=== PATIENT | male | born 1990 | race American Indian/Alaskan Native ===

== ENCOUNTER 2021-08-10 11:16 | Emergency (ER) | payer OTHER ==
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
[2021-08-10 13:28] VITALS: BP 103/55
== END 2021-08-10 13:43 | disposition home or self-care (01) ==
LOC: ED 11:16
DX: S39.012A Strain of muscle, fascia and tendon of lower back, initial encounter (principal); S16.1XXA Strain of muscle, fascia and tendon at neck level, initial encounter; S39.011A Strain of muscle, fascia and tendon of abdomen, initial encounter; V49.49XA Driver injured in collision with other motor vehicles in traffic accident, initial encounter; Y93.89 Activity, other specified; Y92.89 Other specified places as the place of occurrence of the external cause; Y99.8 Other external cause status
CPT/HCPCS: 99282

== ENCOUNTER 2022-01-28 17:49 | Emergency (ER) | payer SELFPAY ==
[2022-01-28] MEDS ORDERED: METOCLOPRAMIDE 10 MG TAB PO ONE (19:07)
[2022-01-28] MEDS ORDERED: diphenhydrAMINE 25 MG CAP PO ONE (19:07)
[2022-01-28] MEDS ORDERED: DEXAMETHASONE 4 MG TAB PO ONE (19:07)
[2022-01-28] MEDS ORDERED: KETOROLAC 10 MG TAB PO ONE (19:07)
[2022-01-28] MEDS ORDERED: BUTALB/ACETAMINOPHEN/CAFFEINE TAB PO ONE (19:07)
--- NOTE | 2022-01-28 21:00 | Emergency Department Report ---
ED Headache HPI - General Chief Complaint: Headache Stated Complaint: HEADACHE X3 DAYS Time Seen by Provider: 01/28/22 18:32 - History of Present Illness Initial Comments: 31-year-old black male with no past medical history presents to the emergency department for evaluation of 3-day history of persistent headache. He states headache has not been relieved with ibuprofen or Excedrin. He states that he has had intermittent nausea, vomiting, dizziness, photophobia, and vision changes. He states that headache is 10 on a 10 point scale. He states that he gets headaches and this headache is typical of the type of headache he gets but but it is usually not this bad. Timing/Duration: other (3 days) Quality: severe Head Injury Location: frontal Recent Head Trauma: no recent headache/trauma Associated Symptoms: facial pain, nausea/vomiting, vision changes. denies: confusion, fatigue, fever/chills, flushing, loss of consciousness, nasal congestion, nasal drainage, numbness in legs/feet, rash, seizures, sinus infection, stiff neck, weakness Allergies/Adverse Reactions: Allergies No Known Allergies Allergy (Verified 01/28/22 21:39) Home Medications: Ambulatory Orders Ibuprofen [Motrin] 600 mg PO Q8H PRN #30 tablet 08/10/21 methOCARBAMOL [Robaxin TAB] 750 mg PO Q8H PRN #30 tablet 08/10/21 Butalb/Acetaminophen/Caffeine [Fioricet 50-300-40 mg CAP] 1 cap PO Q6HR PRN #12 cap 01/28/22 Cetirizine HCl [ZyrTEC 10mg cap] 10 mg PO DAILY #30 cap 01/28/22 methylPREDNISolone [Medrol 4MG DOSEPAK (21 tabs)] 4 mg PO DAILY #1 pack 01/28/22 ED Review of Systems ROS: Stated complaint: HEADACHE X3 DAYS Other details as noted in HPI Comment: All other systems reviewed and negative Constitutional: denies: chills, diaphoresis, fever, malaise, weakness Eyes: eye pain, vision change. denies: eye discharge ENT: denies: ear pain, throat pain, dental pain, hearing loss, congestion Respiratory: denies: cough, shortness of breath Cardiovascular: denies: chest pain, dyspnea on exertion, edema, syncope Endocrine: no symptoms reported Gastrointestinal: denies: abdominal pain, nausea, vomiting, diarrhea, hematemesis, melena, hematochezia Genitourinary: denies: urgency, dysuria, frequency, hematuria Musculoskeletal: denies: back pain Skin: denies: rash, lesions, change in color, change in hair/nails, pruritus Neurological: headache. denies: weakness, numbness, paresthesias, confusion, abnormal gait, vertigo Psychiatric: denies: anxiety Hematological/Lymphatic: denies: easy bleeding, easy bruising ED Past Medical Hx - Medications Home Medications: Home Medications Medication Instructions Recorded Confirmed Last Taken Type Ibuprofen [Motrin] 600 mg PO Q8H PRN #30 tablet 08/10/21 Unknown Rx methOCARBAMOL [Robaxin TAB] 750 mg PO Q8H PRN #30 tablet 08/10/21 Unknown Rx Butalb/Acetaminophen/Caffeine 1 cap PO Q6HR PRN #12 cap 01/28/22 Unknown Rx [Fioricet 50-300-40 mg CAP] Cetirizine HCl [ZyrTEC 10mg cap] 10 mg PO DAILY #30 cap 01/28/22 Unknown Rx methylPREDNISolone [Medrol 4MG 4 mg PO DAILY #1 pack 01/28/22 Unknown Rx DOSEPAK (21 tabs)] ED Physical Exam - General Limitations: No Limitations General appearance: alert, in no apparent distress - Head Head exam: Present: atraumatic, normocephalic - Eye Eye exam: Present: normal appearance. Absent: scleral icterus, conjunctival injection, periorbital swelling, periorbital tenderness Pupils: Present: normal accommodation - ENT ENT exam: Present: other (Noted to have bilateral nasal mucosal edema along with tenderness in maxillary and frontal sinus areas.). Absent: normal orophraynx (Noted to have erythema in posterior oropharynx) - Neck Neck exam: Present: normal inspection. Absent: lymphadenopathy - Respiratory Respiratory exam: Present: normal lung sounds bilaterally. Absent: respiratory distress, wheezes, rales, rhonchi, stridor, accessory muscle use - Cardiovascular Cardiovascular Exam: Present: regular rate, normal heart sounds - GI/Abdominal GI/Abdominal exam: Present: soft, normal bowel sounds. Absent: tenderness, guarding, rebound, rigid - Extremities Exam Extremities exam: Present: normal inspection - Back Exam Back exam: Present: normal inspection. Absent: CVA tenderness (R), CVA tenderness (L) - Neurological Exam Neurological exam: Present: alert, oriented X3, normal gait - Expanded Neurological Exam Expanded Patient oriented to: Present: place, time Speech: Present: fluid speech Cranial nerves: EOM's Intact: Normal Best Eye Response ([place]): (4) open spontaneously Best Motor Response ([place]): (6) obeys commands Best Verbal Response ([place]): (5) oriented [place] Total: 15 - Psychiatric Psychiatric exam: Present: normal affect, normal mood - Skin Skin exam: Present: warm, dry, intact ED Course Vital Signs 01/28/22 01/28/22 01/28/22 18:09 19:32 19:33 Temperature 99.0 F Pulse Rate 68 Respiratory 19 14 14 Rate Blood Pressure 144/82 [Right] O2 Sat by Pulse 98 Oximetry 01/28/22 21:37 Temperature 97.9 F Pulse Rate 76 Respiratory 20 Rate Blood Pressure 124/75 [Right] O2 Sat by Pulse 99 Oximetry - Reevaluation(s) Reevaluation #1: 01/28/22 20:57 Headache, dizziness, and nausea mostly resolved. Patient states that he feels better. ED Medical Decision Making - Medical Decision Making 31-year-old black male with no past medical history presents to the emergency department for evaluation of 3-day history of persistent headache. He states headache has not been relieved with ibuprofen or Excedrin. He states that he has had intermittent nausea, vomiting, dizziness, photophobia, and vision changes. He states that headache is 10 on a 10 point scale. He states that he gets headaches and this headache is typical of the type of headache he gets but but it is usually not this bad. Headache improved after medications. Patient feels much better. Assessment consistent with sinus type headache. Patient will be sent home with steroid pack to take over the next few days along with Fioricet to use for headache as needed. He was advised to follow-up with primary care provider for further evaluation and return to the emergency department for any worsening or concerning symptoms. He verbalized understanding of and agreement with plan of care. Critical care attestation.: If time is entered above; I have spent that time in minutes in the direct care of this critically ill patient, excluding procedure time. ED Disposition Clinical Impression: Headache Qualifiers: Headache type: unspecified Headache chronicity pattern: acute headache Intractability: not intractable Qualified Code(s): R51.9 - Headache, unspecified Disposition: HOME / SELF CARE / HOMELESS Is pt being admited?: No Does the pt Need Aspirin: No Condition: Stable Instructions: General Headache Without Cause, Sinus Headache Additional Instructions: Take medications as prescribed. Drink plenty of noncaffeinated fluids. Follow- up with primary care provider or neurology if no improvement or worsening symptoms. Prescriptions: Butalb/Acetaminophen/Caffeine [Fioricet 50-300-40 mg CAP] 1 cap PO Q6HR PRN #12 cap PRN Reason: Headache methylPREDNISolone [Medrol 4MG DOSEPAK (21 tabs)] 4 mg PO DAILY #1 pack Cetirizine HCl [ZyrTEC 10mg cap] 10 mg PO DAILY #30 cap Referrals: WILIAN DUFF MD [Referring] - 3-5 Days Forms: Work/School Release Form(ED) Time of Disposition: 21:00
[2022-01-28 21:39] VITALS: BP 124/75
== END 2022-01-28 21:40 | disposition home or self-care (01) ==
LOC: ED 17:49
DX: R51.9 Headache, unspecified (principal); R11.2 Nausea with vomiting, unspecified; H53.149 Visual discomfort, unspecified
CPT/HCPCS: 99282; J8540